=== PATIENT | female | born 1985 | race African-American/Black ===

== ENCOUNTER 2019-09-04 13:11 | Emergency (ER) | payer MEDICAID ==
[~2019-09-04] VITALS: Ht 165.1 cm; Wt 84.0 kg
[2019-09-04 13:15] VITALS: BP 128/82
[2019-09-04] MEDS ORDERED: LIDOCAINE HCL/PF 1% 10 MG/ML 5ML VIAL IJ ONE (13:45)
[2019-09-04] MEDS ORDERED: ACETAMINOPHEN 325MG TABLET PO ONE (14:30)
== END 2019-09-04 14:41 | disposition home or self-care (01) ==
LOC: ER 13:11
DX: S41.112A Laceration without foreign body of left upper arm, initial encounter (principal); X99.9XXA Assault by unspecified sharp object, initial encounter; Y93.89 Activity, other specified; Y92.9 Unspecified place or not applicable
CPT/HCPCS: 12002; 99283; J3490

== ENCOUNTER 2020-01-14 09:48 | Emergency (ER) | payer MEDICAID ==
[~2020-01-14] VITALS: Ht 165.1 cm; Wt 89.0 kg
[2020-01-14 09:55] VITALS: BP 116/81
== END 2020-01-14 12:00 | disposition home or self-care (01) ==
LOC: ER 09:48
DX: R10.9 Unspecified abdominal pain (principal); Z53.21 Procedure and treatment not carried out due to patient leaving prior to being seen by health care provider